=== PATIENT | male | born 1965 | race Caucasian/White ===

== ENCOUNTER 2017-12-08 12:36 | Outpatient (CLI) | payer OTHER ==
[~2017-12-08 12:36] MED LIST: ASA81 MG; GLUMETZA1000 MG; HYZAAR 100-251 UDTAB; HYZAAR 100/25 T1 TAB; LISINOPRIL2.5 MG; METOPROLOL SUC100 MG; TRICOR145 MG
== END 2017-12-08 12:44 | disposition home or self-care (01) ==
LOC: TOM 12:36
DX: G44.311 Acute post-traumatic headache, intractable (principal)

== ENCOUNTER 2017-12-10 11:40 | Outpatient (CLI) | payer OTHER | END 2017-12-10 17:00 | disposition home or self-care (01) | LOC: RAD 11:40 | DX: J01.10 Acute frontal sinusitis, unspecified (principal) ==

== ENCOUNTER → 2018-03-04 | Outpatient (CLI) | payer OTHER | END | disposition home or self-care (01) | LOC: PPH VACUNA 10:14 | DX: Z23 Encounter for immunization (principal) ==

== ENCOUNTER 2018-11-29 07:00 | Outpatient (CLI) | payer OTHER | END 2018-11-29 10:00 | disposition home or self-care (01) | LOC: TOM 07:00 | DX: J20.8 Acute bronchitis due to other specified organisms (principal); M75.32 Calcific tendinitis of left shoulder ==

== ENCOUNTER → 2018-11-29 | Outpatient (CLI) | payer OTHER | END | disposition home or self-care (01) | LOC: RAD 09:00 | DX: J20.8 Acute bronchitis due to other specified organisms (principal); M75.32 Calcific tendinitis of left shoulder ==

== ENCOUNTER → 2019-01-01 | Outpatient (CLI) | payer OTHER | END | disposition home or self-care (01) | LOC: TOM 09:46 | DX: I63.00 Cerebral infarction due to thrombosis of unspecified precerebral artery (principal) ==

== ENCOUNTER 2019-06-04 14:03 | Outpatient (CLI) | payer OTHER | END 2019-06-04 14:32 | disposition home or self-care (01) | LOC: SONOGRAMA 14:03 → MAMO-SONO 14:15 → SONOGRAMA 14:32 | DX: M25.511 Pain in right shoulder (principal); M25.512 Pain in left shoulder; M75.30 Calcific tendinitis of unspecified shoulder ==

== ENCOUNTER 2019-06-27 09:35 | Outpatient (CLI) | payer OTHER | END 2019-06-27 16:00 | disposition home or self-care (01) | LOC: LAB 09:35 | DX: I50.20 Unspecified systolic (congestive) heart failure (principal); D64.89 Other specified anemias ==

== ENCOUNTER → 2019-07-10 09:09 | Outpatient (CLI) | payer OTHER | END | disposition home or self-care (01) | LOC: LAB 09:09 | DX: E72.12 Methylenetetrahydrofolate reductase deficiency (principal); E11.65 Type 2 diabetes mellitus with hyperglycemia; I77.89 Other specified disorders of arteries and arterioles; I50.22 Chronic systolic (congestive) heart failure; D64.89 Other specified anemias; R10.84 Generalized abdominal pain; E03.8 Other specified hypothyroidism; E78.49 Other hyperlipidemia; N18.9 Chronic kidney disease, unspecified ==

== ENCOUNTER 2019-07-25 06:02 | Outpatient (CLI) | payer OTHER | END 2019-07-25 06:13 | disposition home or self-care (01) | LOC: LAB 06:02 | DX: H25.012 Cortical age-related cataract, left eye (principal); D68.8 Other specified coagulation defects; Z98.42 Cataract extraction status, left eye; E11.65 Type 2 diabetes mellitus with hyperglycemia; N39.0 Urinary tract infection, site not specified ==

== ENCOUNTER 2019-07-25 07:30 | Outpatient (CLI) | payer OTHER | END 2019-07-25 08:00 | disposition home or self-care (01) | LOC: NUCLEAR 07:30 | DX: I20.8 Other forms of angina pectoris (principal); I25.10 Atherosclerotic heart disease of native coronary artery without angina pectoris | CPT/HCPCS: A9500; 93017; 78452 ==

== ENCOUNTER 2019-09-26 13:49 | Outpatient (CLI) | payer OTHER | END 2019-09-26 14:30 | disposition home or self-care (01) | LOC: NUCLEAR 13:49 | DX: I87.2 Venous insufficiency (chronic) (peripheral) (principal) ==

== ENCOUNTER 2019-09-27 11:25 | Outpatient (CLI) | payer OTHER | END 2019-09-27 11:26 | disposition home or self-care (01) | LOC: RAD 11:25 | DX: R07.89 Other chest pain (principal); Z01.811 Encounter for preprocedural respiratory examination ==

== ENCOUNTER 2020-08-06 07:00 | Outpatient (CLI) | payer OTHER | END 2020-08-06 15:49 | disposition home or self-care (01) | LOC: PPH VACUNA 07:00 | DX: Z23 Encounter for immunization (principal) ==

== ENCOUNTER 2020-09-04 13:22 | Outpatient (CLI) | payer OTHER | END 2020-09-04 13:25 | disposition home or self-care (01) | LOC: LAB 13:22 | PROVIDERS: ATTEND Internal Medicine Hematology & Oncology | DX: Z20.828 Contact with and (suspected) exposure to other viral communicable diseases (principal) ==

== ENCOUNTER → 2020-09-09 08:18 | Outpatient (CLI) | payer OTHER | END | disposition home or self-care (01) | LOC: LAB 08:18 | PROVIDERS: ATTEND Internal Medicine Hematology & Oncology | DX: M79.642 Pain in left hand (principal); L03.012 Cellulitis of left finger; M25.542 Pain in joints of left hand; D64.89 Other specified anemias ==

== ENCOUNTER 2020-09-19 20:27 | Inpatient (IN) | payer OTHER ==
[~2020-09-19] VITALS: Ht 165.1 cm; Wt 86.2 kg
[2020-09-19] MEDS ORDERED: METFORMIN HCL1000 M2 (20:50)
[2020-09-19] MEDS ORDERED: JANUVIA50 MG (20:50)
[2020-09-19] MEDS ORDERED: LIPITOR40 MG (20:51)
[2020-09-19] MEDS ORDERED: B-100 COMPLEX100 MG (20:51)
[2020-09-19] MEDS ORDERED: CARVEDILOL6.25 MG (20:52)
--- NOTE | 2020-09-19 20:53 | NUR ---
PTE ALERTA Y ORIENTADO X 3 ESFERAS QUIEN LLEGA AMBULANDO OLIVIA REFIERE DEBILIDAD Y FIEBRE,REFIERE DOLOR EN DEDO INFECTADO HACE 3 SEMANAS.SE UBICA EN CAMA CON BARANDAS ELEVADAS,MIENTRAS SE LE DENISE HISTORIAL PTE PRESENTA "SLURRED SPEECH".SE NOTIFICA A DR ROSS QUIEN EVALUA PTE.
[2020-09-19] MEDS ORDERED: NUCYNTA50 MG (20:57)
[2020-09-19] MEDS ORDERED: GRALISE600 MG (20:57)
--- NOTE | 2020-09-19 21:10 | NUR ---
SE RECIBE PTE MASCULINO ALERTA Y ORIENTADO EN LAS GRADY ESFERAS EN COMPANIA DE FAMILIAR; ES EVALUADO POR . SE ORIENTA PTE SOBRE ORDENES DE TRATAMIENTO REFIERE COMPRENDER. SE COLECTAN MUESTRAS DE LABORATORIO Y SE CANALIZA VENA POR , BAJO MEDIDAS ASEPTICAS. SE REALIZA EKG Y SE PRESENTA A . SE NOTIFICA A PERSONAL DE TERAPIA RESPIRATORIA ABGS DE PTE. SE NOTIFICA A PERSONAL DE RADIOLAGIA PARA CHEST PORTABLE. SE ENTREGA ENVASE PARA COLECCION DE MUESTRA DE U/A Y U/C, SE ORIENTA PTE SOBRE RENNY DE LA MISMA REFIERE COMPRENDER.
== END 2020-10-01 19:10 | disposition home or self-care (01) | DRG 513 ==
LOC: ER 20:27 → SEC-K 22:18 → SURH 22:18 → MEDI 09-21 22:07 → SURH 09-23 10:58 → MEDJ 09-27 23:27 → SURH 10-01 19:10
PROVIDERS: Specialist; ADMIT Internal Medicine; ATTEND Internal Medicine
PROC: 4A033R1 Measurement of Arterial Saturation, Peripheral, Percutaneous Approach (ICD-10-PCS; 2020-09-19)
PROC: 4A12X4Z Monitoring of Cardiac Electrical Activity, External Approach (ICD-10-PCS; 2020-09-21)
PROC: 02HV33Z Insertion of Infusion Device into Superior Vena Cava, Percutaneous Approach (ICD-10-PCS; 2020-09-22)
PROC: 0PBV0ZZ Excision of Left Finger Phalanx, Open Approach (ICD-10-PCS; 2020-09-23)
PROC: 0JBK0ZZ Excision of Left Hand Subcutaneous Tissue and Fascia, Open Approach (ICD-10-PCS; principal; 2020-09-23 17:15)
DX: M86.042 Acute hematogenous osteomyelitis, left hand (principal); L02.512 Cutaneous abscess of left hand; L03.114 Cellulitis of left upper limb; L03.012 Cellulitis of left finger; I10 Essential (primary) hypertension; G51.0 Bell's palsy; E11.65 Type 2 diabetes mellitus with hyperglycemia; B95.7 Other staphylococcus as the cause of diseases classified elsewhere; Z20.828 Contact with and (suspected) exposure to other viral communicable diseases

== ENCOUNTER 2020-10-08 17:31 | Inpatient (IN) | payer OTHER ==
[~2020-10-08] VITALS: Ht 167.6 cm; Wt 86.2 kg
[~2020-10-08 17:31] MED LIST changes: +B-100 COMPLEX100 MG; +CARVEDILOL6.25 MG; +GRALISE600 MG; +JANUVIA50 MG; +LIPITOR40 MG; +METFORMIN HCL1000 M2; +NUCYNTA50 MG
[2020-10-08] MEDS ORDERED: XARELTO10 MG (17:49)
[2020-10-08] MEDS ORDERED: HUMALOG100 UNIT/2 (17:50)
[2020-10-08] MEDS ORDERED: LANTUS SOL100 UNIT/1 (17:50)
[2020-10-08] MEDS ORDERED: AMLODIPINE-OLM1 EAC2 (17:50)
[2020-10-08] MEDS ORDERED: JARDIANCE10 MG (17:50)
--- NOTE | 2020-10-08 17:51 | NUR ---
PACIENTE ALERTA Y ORIENTADO EN EDSON GRADY ESFERAS QUIEN LLEGA A ER PORM CELULITIS EN DEDO SHARYN DE MANO LT. PACIENTE REFIERE LEVE DOLOR. SE OBSERVA PICC LINE EN BRAZO RT.
== END 2020-10-21 10:06 | DRG 513 ==
LOC: ER 17:31 → SURH 18:02
PROVIDERS: Specialist; ADMIT Internal Medicine; ATTEND Internal Medicine
PROC: 0X6M0Z3 Detachment at Left Thumb, Low, Open Approach (ICD-10-PCS; principal; 2020-10-12 14:30)
PROC: BL3 Imaging, Connective Tissue, Magnetic Resonance Imaging (MRI) (ICD-10-PCS; 2020-10-20)
DX: T87.42 Infection of amputation stump, left upper extremity (principal); M86.042 Acute hematogenous osteomyelitis, left hand; L02.512 Cutaneous abscess of left hand; T87.52 Necrosis of amputation stump, left upper extremity; L03.012 Cellulitis of left finger; B96.1 Klebsiella pneumoniae [K. pneumoniae] as the cause of diseases classified elsewhere; E11.9 Type 2 diabetes mellitus without complications; Z79.4 Long term (current) use of insulin; I11.9 Hypertensive heart disease without heart failure; M24.522 Contracture, left elbow; M24.542 Contracture, left hand

== ENCOUNTER 2020-12-21 09:57 | Outpatient (CLI) | payer OTHER ==
[~2020-12-21 09:57] MED LIST changes: +AMLODIPINE-OLM1 EAC2; +HUMALOG100 UNIT/2; +JARDIANCE10 MG; +LANTUS SOL100 UNIT/1; +XARELTO10 MG
== END 2020-12-21 10:01 | disposition home or self-care (01) ==
LOC: LAB 09:57
PROVIDERS: ATTEND Internal Medicine Hematology & Oncology
DX: Z20.828 Contact with and (suspected) exposure to other viral communicable diseases (principal)

== ENCOUNTER 2021-12-05 15:21 | Outpatient (CLI) | payer OTHER | END 2021-12-05 15:27 | disposition home or self-care (01) | LOC: RAD 15:21 | PROVIDERS: ATTEND Internal Medicine Hematology & Oncology | DX: I10 Essential (primary) hypertension (principal); R09.1 Pleurisy; R07.81 Pleurodynia ==

== ENCOUNTER 2021-12-10 20:42 | Inpatient (IN) | payer OTHER ==
[~2021-12-10] VITALS: Ht 165.1 cm; Wt 86.2 kg
[2021-12-10] MEDS ORDERED: CARVEDILOL6.25 M1 PO (20:51)
[2021-12-10] MEDS ORDERED: AMLODIPINE BESY10 MG PO (20:51)
[2021-12-10] MEDS ORDERED: JANUVIA100 MG PO (20:51)
[2021-12-10] MEDS ORDERED: ST. JOSEPH ASPI81 M2 PO (20:52)
[2021-12-10] MEDS ORDERED: ATORVASTATIN CA40 MG PO (20:52)
[2021-12-10] MEDS ORDERED: METFORMIN HCL1000 M3 PO (20:52)
== END 2021-12-13 15:06 | disposition home or self-care (01) | DRG 552 ==
LOC: ER 20:42 → MEDI 12-11 12:54
PROVIDERS: ADMIT Internal Medicine; ATTEND Internal Medicine
PROC: BW21ZZZ Computerized Tomography (CT Scan) of Abdomen and Pelvis (ICD-10-PCS; 2021-12-11)
PROC: CF2YYZZ Tomographic (Tomo) Nuclear Medicine Imaging of Hepatobiliary System and Pancreas using Other Radionuclide (ICD-10-PCS; 2021-12-12)
PROC: BR37ZZZ Magnetic Resonance Imaging (MRI) of Thoracic Spine (ICD-10-PCS; principal; 2021-12-13)
PROC: BR39ZZZ Magnetic Resonance Imaging (MRI) of Lumbar Spine (ICD-10-PCS; 2021-12-13)
DX: M51.36 Other intervertebral disc degeneration, lumbar region (principal); R10.31 Right lower quadrant pain; E11.9 Type 2 diabetes mellitus without complications; Z79.4 Long term (current) use of insulin; I10 Essential (primary) hypertension; Z20.822 Contact with and (suspected) exposure to COVID-19
CPT/HCPCS: 72146; 72148

== ENCOUNTER 2023-04-26 23:45 | Inpatient (IN) | payer OTHER ==
[~2023-04-26] VITALS: Ht 165.1 cm; Wt 86.2 kg
[~2023-04-26 23:45] MED LIST changes: +AMLODIPINE BESY10 MG PO; +ATORVASTATIN CA40 MG PO; +CARVEDILOL6.25 M1 PO; +JANUVIA100 MG PO; +METFORMIN HCL1000 M3 PO; +ST. JOSEPH ASPI81 M2 PO
--- NOTE | 2023-04-27 00:56 | NUR ---
SE RECIEB PTE ALERTA Y ORIENTADO X3 CUAL REFIERE DOLOR ABDOMINAL CUADRANTE INFERIOR OPRESIVO, NAUSEAS Y VOMITOS X2. SE CATARINA S/V Y SE PRESENTA.
--- NOTE | 2023-04-27 07:29 | NUR ---
SE RECIBE PTE EN EL AREA DE OBSEVACION EN EL CUBICULO #14 PTE ALERTA Y ORIENTADO POR 3 SE OBSERVA VENOPUNCION PANTENTE Y SHAHEEN DE EDEMA, PTE SE MANTIENE EN OBSERVACION Y BAJO TRATAMIENTO. PTE EN ESEPRA DEL DR YUAN
== END 2023-04-29 18:04 | disposition home or self-care (01) | DRG 690 ==
LOC: ER 23:45 → SEC-K 04-27 10:02 → MEDI 04-27 10:02
PROVIDERS: ADMIT Specialist; ATTEND Specialist
PROC: BW21ZZZ Computerized Tomography (CT Scan) of Abdomen and Pelvis (ICD-10-PCS; principal; 2023-04-27)
DX: N39.0 Urinary tract infection, site not specified (principal); N10 Acute pyelonephritis; N20.0 Calculus of kidney; E11.9 Type 2 diabetes mellitus without complications; Z79.4 Long term (current) use of insulin; I10 Essential (primary) hypertension; G47.33 Obstructive sleep apnea (adult) (pediatric); N12 Tubulo-interstitial nephritis, not specified as acute or chronic; Z86.73 Personal history of transient ischemic attack (TIA), and cerebral infarction without residual deficits

== ENCOUNTER 2023-09-13 09:23 | Outpatient (CLI) | payer OTHER | END 2023-09-13 09:25 | disposition home or self-care (01) | LOC: LAB 09:23 → RAD 09:23 → LAB 09:25 | PROVIDERS: ATTEND Internal Medicine Hematology & Oncology | DX: J20.0 Acute bronchitis due to Mycoplasma pneumoniae (principal) ==

== ENCOUNTER 2023-09-13 12:28 | Outpatient (CLI) | payer OTHER | END 2023-09-13 12:37 | disposition home or self-care (01) | LOC: RAD 12:28 | PROVIDERS: ATTEND Internal Medicine Hematology & Oncology | DX: J20.0 Acute bronchitis due to Mycoplasma pneumoniae (principal) ==

== ENCOUNTER 2023-09-14 15:45 | Inpatient (IN) | payer OTHER ==
[~2023-09-14] VITALS: Ht 152.4 cm; Wt 86.2 kg
[2023-09-14 16:16] LABS: ABG PH 7.438 (7.35-7.45); ABG PO2 79.4 mmHg (80-100); ABG pCO2 35.6 mmHg (35-45); BASE EXCESS -0.1 mmol/l; BICARBONATE 23.5 mmol/l (23-25); SaO2 96.1 %; Tco2 24.6 mmol/l
[2023-09-14 16:19] LABS: allen test SATISFACTORY; o2 21 %; puncture site RADIAL LEFT
[2023-09-14 16:44] LABS: HEMATOCRIT 32.7 % (39.0-48.0); HEMOGLOBIN 11.1 g/dL (13-16.00); MEAN CELL VOLUME 82.3 fL (80.0-100.00); MEAN CORPUSCULAR HEMOGLOBIN 27.9 pg (27.00-32.0); MEAN CORPUSCULAR HGB CONC 33.9 g/dl (32.0-36.0); PLATELET COUNT 182 K/uL (150-450); RED BLOOD COUNT 3.97 M/uL (4.00-6.00); RED CELL DISTRIBUTION WIDTH 15.9 % (11.5-14.5)
[2023-09-14 17:08] LABS: BILIRUBIN TOTAL 0.63 mg/dL (0.3-1.2); CALCIUM 8.1 mg/dL (8.5-10.1); CREATININE SERUM 1.18 mg/dL (0.70-1.30); GFR 62.97; GLOBULINA 2.7 G/DL (2.4-3.5); POTASSIUM 4.39 mEq/L (3.5-5.1); TOTAL PROTEIN 5.7 gm/dL (6.4-8.2)
[2023-09-15 06:58] LABS: HEMATOCRIT 32.6 % (39.0-48.0); HEMOGLOBIN 11.4 g/dL (13-16.00); MEAN CELL VOLUME 81.5 fL (80.0-100.00); MEAN CORPUSCULAR HEMOGLOBIN 28.5 pg (27.00-32.0); MEAN CORPUSCULAR HGB CONC 34.9 g/dl (32.0-36.0); PLATELET COUNT 179 K/uL (150-450); RED BLOOD COUNT 4.01 M/uL (4.00-6.00); RED CELL DISTRIBUTION WIDTH 15.6 % (11.5-14.5)
[2023-09-15 07:32] LABS: INR 1.01; PARTIAL THROMBOPLASTIN TIME 31.5 SECONDS (22.0-34.0); PROTHROMBIN TIME 10.6 SECONDS (9.0-11.5)
[2023-09-15 08:08] LABS: ALBUMIN 2.8 gm/dL (3.4-5.0); BILIRUBIN TOTAL 0.55 mg/dL (0.3-1.2); BILIRUBIN,CONJUGATED 0.18 mg/dL (0.0-0.2); BILIRUBIN,UNCONJUGATED 0.37 mg/dL (0.0-0.6); CALCIUM 8.3 mg/dL (8.5-10.1); CHOL HDL RATIO 1.6 (0-5.0); GFR 76.22; GLOBULINA 2.8 G/DL (2.4-3.5); POTASSIUM 4.23 mEq/L (3.5-5.1); TOTAL PROTEIN 5.6 gm/dL (6.4-8.2)
[2023-09-15 08:11] LABS: C-REACTIVE PROTEIN 4.01 MG/DL (0.00-0.29)
[2023-09-15 08:12] LABS: PH,URINE 6.5 (5.0-8.0); URINE APPEARANCE Clear; URINE BILIRRUBIN Negative (NEGATIVE); URINE BLOOD Negative; URINE COLOR Yellow; URINE LEUKOCYTE Negative; URINE NITRATE Negative; URINE UROBILINOGEN 0.2 E.U./dl
[2023-09-15 08:16] LABS: URINE RBC 9.3 uL (0.0-20.8)
[2023-09-15 08:22] LABS: URINE BACTERIA 2.5 uL (0.0-1933); URINE EPITHELIAL CELLS 0.6 uL (0.0-38.8); URINE GLUCOSE 500 MG/DL (NEGATIVE); URINE PROTEIN 100 (NEGATIVE)
[2023-09-15 08:53] LABS: ERYTHROCYTE SEDIMENTATION RATE 74 mm/hr
[2023-09-18 07:34] LABS: HEMATOCRIT 37.3 % (39.0-48.0); HEMOGLOBIN 12.4 g/dL (13-16.00); MEAN CORPUSCULAR HEMOGLOBIN 27.5 pg (27.00-32.0); MEAN CORPUSCULAR HGB CONC 33.1 g/dl (32.0-36.0); PLATELET COUNT 217 K/uL (150-450); RED CELL DISTRIBUTION WIDTH 15.8 % (11.5-14.5)
[2023-09-18 07:39] LABS: ABG PH 7.442 (7.35-7.45); ABG PO2 117.4 mmHg (80-100); ABG pCO2 37.1 mmHg (35-45); SaO2 98.7 %
[2023-09-18 07:40] LABS: BICARBONATE 24.8 mmol/l (23-25); Tco2 25.9 mmol/l; allen test SATISFACTORY; o2 31 %; puncture site RADIAL RIGHT
[2023-09-18 07:50] LABS: ERYTHROCYTE SEDIMENTATION RATE 29 mm/hr
[2023-09-18 08:24] LABS: ALBUMIN 2.8 gm/dL (3.4-5.0); BILIRUBIN TOTAL 0.54 mg/dL (0.3-1.2); CREATININE SERUM 1.08 mg/dL (0.70-1.30); GFR 69.74; GLOBULINA 2.8 G/DL (2.4-3.5); POTASSIUM 4.07 mEq/L (3.5-5.1); TOTAL PROTEIN 5.6 gm/dL (6.4-8.2)
[2023-09-18 08:25] LABS: C-REACTIVE PROTEIN 0.41 MG/DL (0.00-0.29)
[2023-09-20 08:55] LABS: ALBUMIN 2.5 gm/dL (3.4-5.0); BILIRUBIN TOTAL 0.66 mg/dL (0.3-1.2); CALCIUM 7.7 mg/dL (8.5-10.1); CREATININE SERUM 0.92 mg/dL (0.70-1.30); GFR 83.92; GLOBULINA 2.2 G/DL (2.4-3.5); POTASSIUM 3.35 mEq/L (3.5-5.1); T4 TOTAL 5.98 UG/DL (4.5-12.1); TOTAL PROTEIN 4.7 gm/dL (6.4-8.2)
[2023-09-20 09:09] LABS: TSH 0.166 uIU/mL (0.358-3.74)
[2023-09-20 11:32] LABS: HEMATOCRIT 39.1 % (39.0-48.0); MEAN CELL VOLUME 82.2 fL (80.0-100.00); MEAN CORPUSCULAR HEMOGLOBIN 27.3 pg (27.00-32.0); MEAN CORPUSCULAR HGB CONC 33.2 g/dl (32.0-36.0); PLATELET COUNT 233 K/uL (150-450); RED BLOOD COUNT 4.76 M/uL (4.00-6.00); RED CELL DISTRIBUTION WIDTH 16.2 % (11.5-14.5)
[2023-09-22 08:11] LABS: CALCIUM 7.9 mg/dL (8.5-10.1); CREATININE SERUM 1.01 mg/dL (0.70-1.30); GFR 75.35; POTASSIUM 3.7 mEq/L (3.5-5.1)
[2023-09-22 08:50] LABS: HEMATOCRIT 36.8 % (39.0-48.0); HEMOGLOBIN 12.5 g/dL (13-16.00); MEAN CELL VOLUME 82.2 fL (80.0-100.00); MEAN CORPUSCULAR HGB CONC 34.1 g/dl (32.0-36.0); PLATELET COUNT 164 K/uL (150-450); RED BLOOD COUNT 4.48 M/uL (4.00-6.00); RED CELL DISTRIBUTION WIDTH 15.9 % (11.5-14.5)
[2023-09-24 07:48] LABS: HEMATOCRIT 36.6 % (39.0-48.0); HEMOGLOBIN 12.4 g/dL (13-16.00); MEAN CELL VOLUME 82.5 fL (80.0-100.00); PLATELET COUNT 140 K/uL (150-450); RED BLOOD COUNT 4.43 M/uL (4.00-6.00); RED CELL DISTRIBUTION WIDTH 15.9 % (11.5-14.5)
[2023-09-24 08:15] LABS: ALBUMIN 2.8 gm/dL (3.4-5.0); BILIRUBIN TOTAL 0.66 mg/dL (0.3-1.2); CALCIUM 8.4 mg/dL (8.5-10.1); CREATININE SERUM 1.07 mg/dL (0.70-1.30); GFR 70.49; GLOBULINA 2.3 G/DL (2.4-3.5); POTASSIUM 4.08 mEq/L (3.5-5.1); TOTAL PROTEIN 5.1 gm/dL (6.4-8.2)
[2023-09-24] MEDS ORDERED: HYDRALAZINE HCL25 MG PO (15:29)
[2023-09-24] MEDS ORDERED: COZAAR100 MG PO (15:29)
== END 2023-09-24 19:02 | disposition home or self-care (01) | DRG 194 ==
LOC: ER 15:45 → SURH 19:00 → MEDI 19:00 → MEDJ 19:00 → MEDI 19:19 → SURH 09-15 09:14
PROVIDERS: General Practice; Internal Medicine; Internal Medicine Endocrinology, Diabetes & Metabolism; Internal Medicine Infectious Disease; Specialist; Student in an Organized Health Care Education/Training Program; ADMIT Internal Medicine; ATTEND Internal Medicine
PROC: BW24ZZZ Computerized Tomography (CT Scan) of Chest and Abdomen (ICD-10-PCS; principal; 2023-09-14)
PROC: B24BZZZ Ultrasonography of Heart with Aorta (ICD-10-PCS; 2023-09-16)
PROC: 02HV33Z Insertion of Infusion Device into Superior Vena Cava, Percutaneous Approach (ICD-10-PCS; 2023-09-17)
PROC: BW24ZZZ Computerized Tomography (CT Scan) of Chest and Abdomen (ICD-10-PCS; 2023-09-20)
DX: J18.9 Pneumonia, unspecified organism (principal); E72.12 Methylenetetrahydrofolate reductase deficiency; I13.0 Hypertensive heart and chronic kidney disease with heart failure and stage 1 through stage 4 chronic kidney disease, or unspecified chronic kidney disease; N17.9 Acute kidney failure, unspecified; N39.0 Urinary tract infection, site not specified; E86.0 Dehydration; G47.33 Obstructive sleep apnea (adult) (pediatric); I25.10 Atherosclerotic heart disease of native coronary artery without angina pectoris; E11.22 Type 2 diabetes mellitus with diabetic chronic kidney disease; N18.9 Chronic kidney disease, unspecified; Z79.4 Long term (current) use of insulin; E11.65 Type 2 diabetes mellitus with hyperglycemia; I50.9 Heart failure, unspecified; Z20.822 Contact with and (suspected) exposure to COVID-19

== ENCOUNTER 2023-10-19 11:39 | Outpatient (CLI) | payer OTHER ==
[~2023-10-19 11:39] MED LIST changes: +COZAAR100 MG PO; +HYDRALAZINE HCL25 MG PO
== END 2023-10-19 11:45 | disposition home or self-care (01) ==
LOC: SONOGRAMA 11:39
PROVIDERS: ATTEND Specialist/Technologist, Other Nephrology
DX: J18.8 Other pneumonia, unspecified organism (principal); N18.30 Chronic kidney disease, stage 3 unspecified; I12.9 Hypertensive chronic kidney disease with stage 1 through stage 4 chronic kidney disease, or unspecified chronic kidney disease

== ENCOUNTER 2023-10-22 09:22 | Outpatient (CLI) | payer OTHER | END 2023-10-22 09:32 | disposition home or self-care (01) | LOC: LAB 09:22 | PROVIDERS: ATTEND Internal Medicine Hematology & Oncology | DX: E11.65 Type 2 diabetes mellitus with hyperglycemia (principal); N18.2 Chronic kidney disease, stage 2 (mild) ==

== ENCOUNTER 2023-10-22 12:00 | Outpatient (CLI) | payer OTHER | END 2023-11-01 11:05 | disposition home or self-care (01) | LOC: SONOGRAMA 12:00 | PROVIDERS: ATTEND Specialist/Technologist, Other Nephrology | DX: N18.30 Chronic kidney disease, stage 3 unspecified (principal); I12.9 Hypertensive chronic kidney disease with stage 1 through stage 4 chronic kidney disease, or unspecified chronic kidney disease ==

== ENCOUNTER 2024-01-25 08:44 | Outpatient (CLI) | payer OTHER | END 2024-01-25 09:03 | disposition home or self-care (01) | LOC: TOM 08:44 | PROVIDERS: ATTEND Internal Medicine Pulmonary Disease | DX: E04.1 Nontoxic single thyroid nodule (principal); J45.991 Cough variant asthma; R91.8 Other nonspecific abnormal finding of lung field; Z86.16 Personal history of COVID-19; J15.9 Unspecified bacterial pneumonia ==

== ENCOUNTER 2024-07-31 17:48 | Emergency (ER) | payer OTHER ==
[~2024-07-31] VITALS: Ht 167.6 cm; Wt 90.7 kg
[2024-07-31] MEDS ORDERED: ONDANSETRON HCL 2 MG/ML VIAL ONE (17:59)
[2024-07-31] MEDS ORDERED: ONDANSETRON HCL 2 MG/ML VIAL IV STA (18:04)
[2024-07-31 18:30] LABS: HEMATOCRIT 42.7 % (39.0-48.0); HEMOGLOBIN 14.7 g/dL (13-16.00); MEAN CELL VOLUME 88.8 fL (80.0-100.00); MEAN CORPUSCULAR HEMOGLOBIN 30.6 pg (27.00-32.0); MEAN CORPUSCULAR HGB CONC 34.4 g/dl (32.0-36.0); PLATELET COUNT 191 K/uL (150-450); RED BLOOD COUNT 4.81 M/uL (4.00-6.00)
[2024-07-31] MEDS ORDERED: 0.9 % SODIUM CHLORIDE 1,000 ML IV SCH (18:30)
[2024-07-31 18:37] LABS: INR < 0.93; PARTIAL THROMBOPLASTIN TIME 27.6 SECONDS (22.0-34.0)
[2024-07-31] MEDS ORDERED: ACETAMINOPHEN 500 MG GEL..CAP PO ONE (18:40)
[2024-07-31] MEDS ORDERED: ACETAMINOPHEN 500 MG GEL..CAP PO STA (18:49)
[2024-07-31 19:03] LABS: ALBUMIN 4.4 gm/dL (3.4-5.0); BILIRUBIN TOTAL 0.54 mg/dL (0.3-1.2); CALCIUM 10.1 mg/dL (8.5-10.1); CREATININE SERUM 1.22 mg/dL (0.70-1.30); GFR 60.39; GLOBULINA 3.6 G/DL (2.4-3.5); POTASSIUM 4.43 mEq/L (3.5-5.1)
== END 2024-07-31 20:20 | disposition designated cancer center or children's hospital (05) ==
LOC: ER 17:50
PROVIDERS: Emergency Medicine
DX: R42 Dizziness and giddiness (principal); Z86.73 Personal history of transient ischemic attack (TIA), and cerebral infarction without residual deficits; Z88.0 Allergy status to penicillin; G47.33 Obstructive sleep apnea (adult) (pediatric); J45.909 Unspecified asthma, uncomplicated; Z88.8 Allergy status to other drugs, medicaments and biological substances; E11.9 Type 2 diabetes mellitus without complications; Z79.84 Long term (current) use of oral hypoglycemic drugs; J32.0 Chronic maxillary sinusitis

== ENCOUNTER 2024-08-13 12:42 | Outpatient (CLI) | payer OTHER | END 2024-08-13 12:47 | disposition home or self-care (01) | LOC: RAD 12:42 | PROVIDERS: ATTEND General Practice | DX: M25.552 Pain in left hip (principal) ==

== ENCOUNTER 2024-12-11 16:00 | Outpatient (CLI) | payer OTHER | END 2024-12-11 16:10 | disposition home or self-care (01) | LOC: PPH VACUNA 16:00 | PROVIDERS: ATTEND Emergency Medicine Pediatric Emergency Medicine | DX: Z23 Encounter for immunization (principal) ==

== ENCOUNTER 2025-05-20 08:49 | Outpatient (CLI) | payer OTHER | END 2025-05-20 08:58 | disposition home or self-care (01) | LOC: SONOGRAMA 08:49 | PROVIDERS: ATTEND Internal Medicine Endocrinology, Diabetes & Metabolism | DX: E04.1 Nontoxic single thyroid nodule (principal) ==

== ENCOUNTER 2025-09-09 11:05 | Emergency (ER) | payer OTHER ==
[~2025-09-09] VITALS: Ht 165.1 cm; Wt 86.2 kg
[2025-09-09] MEDS ORDERED: SODIUM CHLORIDE 0.45 % 1,000 ML IV STA (11:22)
[2025-09-09 12:04] LABS: INR 0.99
[2025-09-09 12:08] LABS: ALT/SGPT 53.0 U/L (12-78); AST/SGOT 23.0 U/L (15-37); BILIRUBIN TOTAL 0.63 mg/dL (0.3-1.2); BUN CREA RATIO 14.0 (7.0-25.0); CREATININE SERUM 1.02 mg/dL (0.70-1.30); GFR 74.0; GLOBULINA 3.0 G/DL (2.4-3.5); OSMOLALITY SERUM 285.0 MOSM/KG (275-295)
[2025-09-09 12:09] LABS: GLUCOSE FASTING 262.0 mg/dL (65-100)
[2025-09-09 13:19] LABS: URINE APPEARANCE Clear; URINE BILIRRUBIN Negative (NEGATIVE); URINE BLOOD Negative; URINE COLOR Yellow; URINE KETONE Negative (NEGATIVE); URINE LEUKOCYTE Negative; URINE NITRATE Negative; URINE UROBILINOGEN 0.2 E.U./dl
[2025-09-09 13:22] LABS: URINE RBC 4.8 uL (0.0-20.8)
[2025-09-09 13:40] LABS: URINE BACTERIA 1.1 uL (0.0-1933); URINE CAST 0.14 uL (0.0-1.40); URINE EPITHELIAL CELLS 0.0 uL (0.0-38.8); URINE GLUCOSE 500 MG/DL (NEGATIVE); URINE PROTEIN 100 (NEGATIVE); URINE WBC 0.3 uL (0.0-23.2)
[2025-09-09 14:23] VITALS: BP 154/88; O2SAT 99
== END 2025-09-09 14:24 | disposition designated cancer center or children's hospital (05) ==
LOC: ER 11:05
PROVIDERS: General Practice; Internal Medicine
DX: R42 Dizziness and giddiness (principal); I10 Essential (primary) hypertension; E11.9 Type 2 diabetes mellitus without complications; Z79.84 Long term (current) use of oral hypoglycemic drugs; Z88.0 Allergy status to penicillin; Z88.1 Allergy status to other antibiotic agents; Z88.5 Allergy status to narcotic agent

== ENCOUNTER 2025-09-18 08:03 | Outpatient (CLI) | payer OTHER | END 2025-09-18 08:06 | disposition home or self-care (01) | LOC: NUCLEAR 08:03 | PROVIDERS: ATTEND Internal Medicine | DX: I10 Essential (primary) hypertension (principal); I25.10 Atherosclerotic heart disease of native coronary artery without angina pectoris ==

== ENCOUNTER 2025-10-05 21:15 | Emergency (ER) | payer OTHER ==
[~2025-10-05] VITALS: Ht 154.9 cm; Wt 86.2 kg
[2025-10-05] MEDS ORDERED: MAGNESIUM HYDROXIDE 400 MG/5 ML ML PO ONE (21:30)
[2025-10-05] MEDS ORDERED: MINERAL OIL 30 ML BLIST.PACK PO ONE (21:30)
[2025-10-05] MEDS ORDERED: LACTULOSE 20 G/30 ML BLIST.PACK PO ONE ×2 (21:30→23:15)
[2025-10-05] MEDS ORDERED: MINERAL OIL 30 ML BLIST.PACK ONE (21:39)
[2025-10-05] MEDS ORDERED: MAGNESIUM HYDROXIDE 30 ML BLIST.PACK PO ONE (21:39)
[2025-10-05] MEDS ORDERED: LACTULOSE 20 G/30 ML BLIST.PACK ONE (21:39)
[2025-10-05] MEDS ORDERED: NA PHOS,M-B/NA PHOS,DI-BA 1 BOTTLE ENEMA RECTAL ONE (22:00)
[2025-10-06] MEDS ORDERED: MIRALAX17 GM PO (00:08)
[2025-10-06] MEDS ORDERED: SURFAK240 M1 PO (00:08)
[2025-10-06] MEDS ORDERED: LACTULOSE 20 G/30 ML BLIST.PACK ONE (00:17)
== END 2025-10-06 01:10 | disposition home or self-care (01) ==
LOC: ER 21:16
DX: K59.00 Constipation, unspecified (principal); E11.9 Type 2 diabetes mellitus without complications; Z79.84 Long term (current) use of oral hypoglycemic drugs; Z88.0 Allergy status to penicillin; Z88.8 Allergy status to other drugs, medicaments and biological substances

== ENCOUNTER 2025-10-07 08:59 | Outpatient (CLI) | payer OTHER ==
[~2025-10-07 08:59] MED LIST changes: +MIRALAX17 GM PO; +SURFAK240 M1 PO
[2025-10-07 10:04] LABS: URINE APPEARANCE Clear; URINE BILIRRUBIN Negative (NEGATIVE); URINE BLOOD Negative; URINE COLOR Yellow; URINE GLUCOSE Negative (NEGATIVE); URINE KETONE Negative (NEGATIVE); URINE LEUKOCYTE Negative; URINE NITRATE Negative; URINE UROBILINOGEN 0.2 E.U./dl
[2025-10-07 10:09] LABS: URINE RBC 4.5 uL (0.0-20.8)
[2025-10-07 10:15] LABS: URINE BACTERIA 1.1 uL (0.0-1933); URINE CAST 0.00 uL (0.0-1.40); URINE EPITHELIAL CELLS 0.1 uL (0.0-38.8); URINE PROTEIN 100 (NEGATIVE); URINE WBC 0.1 uL (0.0-23.2)
[2025-10-07 10:33] LABS: INR 0.96
[2025-10-07 10:34] LABS: BUN CREA RATIO 15.0 (7.0-25.0); CREATININE SERUM 0.99 mg/dL (0.70-1.30); GFR 76.6; OSMOLALITY SERUM 276.0 MOSM/KG (275-295)
[2025-10-07 10:40] LABS: GLUCOSE FASTING 220.0 mg/dL (65-100)
[2025-10-07 10:44] LABS: BASO % 0.4 % (0.1-1.2); EOS # 0.55 (0.04-0.54); EOS % 8.1 % (0.7-7.0); LYMPH # 1.61 (1.18-3.74); LYMPH % 23.8 % (19.3-53.1); MEAN PLATELET VOLUME 11.10 fl (9.4-12.4); MONO # 0.50 (0.24-0.82); MONO % 7.4 % (4.7-12.5); NEUT # 4.07 (1.56-6.13); NEUT % 60.2 % (34.0-71.1); RED CELL DISTRIBUTION WIDTH 13.1 % (11.6-14.4)
[2025-10-07 14:10] LABS: RH POSITIVE
== END 2025-10-07 13:29 | disposition home or self-care (01) ==
LOC: LAB 08:59
PROVIDERS: ATTEND Internal Medicine
DX: D64.9 Anemia, unspecified (principal); N39.0 Urinary tract infection, site not specified; Z79.01 Long term (current) use of anticoagulants; J44.9 Chronic obstructive pulmonary disease, unspecified

== ENCOUNTER 2025-10-07 10:00 | Outpatient (CLI) | payer OTHER ==
[2025-10-09] MEDS ORDERED: ECOTRIN325 M1 PO (17:48)
[2025-10-09] MEDS ORDERED: LOSARTAN POTASS50 MG PO (17:48)
[2025-10-09] MEDS ORDERED: METFORMIN HCL500 M3 PO (17:48)
[2025-10-09] MEDS ORDERED: ELIQUIS5 MG PO (17:48)
== END 2025-10-14 14:46 | disposition home or self-care (01) ==
LOC: TOM 10:00
DX: R10.9 Unspecified abdominal pain (principal)

== ENCOUNTER 2025-10-09 17:41 | Inpatient (IN) | payer OTHER ==
[2025-10-09] MEDS ORDERED: METFORMIN HCL500 M3 PO (17:48)
[2025-10-09] MEDS ORDERED: ECOTRIN325 M1 PO (17:48)
[2025-10-09] MEDS ORDERED: ELIQUIS5 MG PO (17:48)
[2025-10-09] MEDS ORDERED: LOSARTAN POTASS50 MG PO (17:48)
[2025-10-09] MEDS ORDERED: SODIUM CHLORIDE 0.45 % 1,000 ML IV STA (18:08)
[2025-10-09 18:25] LABS: BASO % 0.8 % (0.1-1.2); EOS # 0.54 (0.04-0.54); EOS % 7.2 % (0.7-7.0); LYMPH # 1.85 (1.18-3.74); LYMPH % 24.6 % (19.3-53.1); MEAN PLATELET VOLUME 10.90 fl (9.4-12.4); MONO # 0.73 (0.24-0.82); MONO % 9.7 % (4.7-12.5); NEUT # 4.32 (1.56-6.13); NEUT % 57.4 % (34.0-71.1); RED CELL DISTRIBUTION WIDTH 12.8 % (11.6-14.4)
[2025-10-09] MEDS ORDERED: BARIUM SULFATE 450 ML ORAL.SUSP PO ONE (18:42)
[2025-10-09 18:46] LABS: INR 0.95
[2025-10-09 18:48] LABS: ALT/SGPT 48.0 U/L (12-78); AST/SGOT 24.0 U/L (15-37); BILIRUBIN TOTAL 0.61 mg/dL (0.3-1.2); BUN CREA RATIO 14.0 (7.0-25.0); CREATININE SERUM 1.07 mg/dL (0.70-1.30); GFR 70.03; GLOBULINA 2.7 G/DL (2.4-3.5); OSMOLALITY SERUM 276.0 MOSM/KG (275-295)
[2025-10-09 18:49] LABS: D DIMER 0.31 MG/L; GLUCOSE FASTING 264.0 mg/dL (65-100)
[2025-10-09 19:26] LABS: URINE APPEARANCE Clear; URINE BILIRRUBIN Negative (NEGATIVE); URINE BLOOD Negative; URINE COLOR Yellow; URINE KETONE Negative (NEGATIVE); URINE LEUKOCYTE Negative; URINE NITRATE Negative; URINE PROTEIN 30 (NEGATIVE); URINE UROBILINOGEN 0.2 E.U./dl
[2025-10-09 19:27] LABS: URINE RBC 4.0 uL (0.0-20.8)
[2025-10-09] MEDS ORDERED: ACETAMINOPHEN 500 MG GEL..CAP PO ONE ×2 (19:27→19:45)
[2025-10-09 19:44] LABS: URINE BACTERIA 1.1 uL (0.0-1933); URINE CAST 0.00 uL (0.0-1.40); URINE EPITHELIAL CELLS 0.0 uL (0.0-38.8); URINE GLUCOSE 100 MG/DL (NEGATIVE); URINE WBC 0 uL (0.0-23.2)
[2025-10-09] MEDS ORDERED: IPRATROPIUM BROMIDE 0.5 MG/2.5 ML AMPUL.NEB IH ONE ×2 (19:59→20:00)
[2025-10-09] MEDS ORDERED: LEVALBUTEROL HCL 0.63 MG/3 ML SOLUTION IH ONE ×3 (20:00)
[2025-10-09 21:33] LABS: COVID-19 AG NEGATIVE (NEGATIVE)
[2025-10-09] MEDS ORDERED: DEXTROSE 50 % IN WATER 0.5 G/ML DISP.SYRIN IV PRN (22:45)
[2025-10-09] MEDS ORDERED: INSULIN LISPRO 1,000 UNIT/10 ML UNITS SUBCUTANEO PRN (22:45)
[2025-10-09] MEDS ORDERED: 0.9 % SODIUM CHLORIDE 1,000 ML IV SCH (23:15)
[2025-10-09] MEDS ORDERED: levoFLOXacin IN DEXTROSE 5 % 150 ML IV SCH (23:32)
[2025-10-09] MEDS ORDERED: FAMOTIDINE/PF 20 MG in 0.9 % SODIUM CHLORIDE 8 ML IV PUSH SCH (23:32)
[2025-10-10] VITALS (9 sets, daily range): BP systolic 131–139; BP diastolic 66–73; O2SAT 93–100
[2025-10-10] MEDS ORDERED: IPRATROPIUM BROMIDE 0.5 MG/2.5 ML AMPUL.NEB IH SCH ×2 (01:00→02:00)
[2025-10-10] MEDS ORDERED: LEVALBUTEROL HCL 0.63 MG/3 ML SOLUTION IH SCH ×2 (01:00→02:00)
[2025-10-10] MEDS ORDERED: METHYLPREDNISOLONE SOD SUCC 125 MG VIAL IV STA (01:42)
[2025-10-10] MEDS ORDERED: METHYLPREDNISOLONE SOD SUCC 125 MG VIAL IV SCH ×2 (05:00→21:00)
[2025-10-10] MEDS ORDERED: AMLODIPINE BESYLATE 10 MG TABLET PO SCH (09:00)
[2025-10-10] MEDS ORDERED: ENOXAPARIN SODIUM 40 MG/0.4 ML SYRINGE SUBCUTANEO SCH (09:00)
[2025-10-10] MEDS ORDERED: LOSARTAN POTASSIUM 50 MG TABLET PO SCH (09:00)
[2025-10-10] MEDS ORDERED: CARVEDILOL 6.25 MG TABLET PO SCH (09:00)
[2025-10-10] MEDS ORDERED: METHYLPREDNISOLONE SOD SUCC 40 MG VIAL IV SCH (09:00)
[2025-10-10] MEDS ORDERED: ATORVASTATIN CALCIUM 40 MG TABLET PO SCH (09:00)
[2025-10-10 09:01] LABS: INR 0.98
[2025-10-10] MEDS ORDERED: DOCUSATE SODIUM 100MG CAP PO NR (17:00)
[2025-10-10] MEDS ORDERED: INSULIN LISPRO 1,000 UNIT/10 ML UNITS SUBCUTANEO SCH (17:38)
[2025-10-10] MEDS ORDERED: INSULIN GLARGINE,HUM.REC.ANLOG 1,000 UNITS/10 ML UNITS SUBCUTANEO SCH (17:38)
[2025-10-10] MEDS ORDERED: LACTULOSE 20 G/30 ML BLIST.PACK PO SCH (19:53)
[2025-10-10] MEDS ORDERED: TEMAZEPAM 15 MG CAPSULE PO SCH (21:00)
[2025-10-10] MEDS ORDERED: ACETAMINOPHEN 500 MG GEL..CAP PO PRN (22:30)
[2025-10-11] VITALS (7 sets, daily range): BP systolic 119–129; BP diastolic 68–76; O2SAT 90–100
[2025-10-11 08:19] LABS: BASO % 0.0 % (0.1-1.2); EOS # 0.00 (0.04-0.54); EOS % 0.0 % (0.7-7.0); LYMPH # 0.77 (1.18-3.74); LYMPH % 10.3 % (19.3-53.1); MEAN PLATELET VOLUME 12.40 fl (9.4-12.4); MONO # 0.22 (0.24-0.82); MONO % 2.9 % (4.7-12.5); NEUT # 6.46 (1.56-6.13); NEUT % 86.5 % (34.0-71.1); RED CELL DISTRIBUTION WIDTH 12.9 % (11.6-14.4)
[2025-10-11 08:23] LABS: LDH 262.0 U/L (87-241); PHOSPHOKINASE CREATININE 123.0 U/L (39-308)
[2025-10-11] MEDS ORDERED: DOCUSATE SODIUM 100MG CAP PO PRN (09:00)
[2025-10-11] MEDS ORDERED: LACTULOSE 10 G/15 ML ML PO PRN ×2 (09:45→10:00)
[2025-10-11] MEDS ORDERED: INSULIN LISPRO 1,000 UNIT/10 ML UNITS SUBCUTANEO SCH (11:00)
[2025-10-11] MEDS ORDERED: METHYLPREDNISOLONE SOD SUCC 40 MG VIAL IV SCH (13:00)
[2025-10-11] MEDS ORDERED: INSULIN REGULAR, HUMAN 1,000 UNIT/10 ML UNITS IV STA (14:11)
[2025-10-11] MEDS ORDERED: LIDOCAINE HCL 1% 10ML VIAL IJ ONE (14:50)
[2025-10-11] MEDS ORDERED: POVIDONE-IODINE 118 ML BOTT TOP ONE (14:50)
[2025-10-12] VITALS (9 sets, daily range): BP systolic 130–162; BP diastolic 74–79; O2SAT 84–99
[2025-10-12 06:18] LABS: BASO % 0.1 % (0.1-1.2); EOS # 0.00 (0.04-0.54); EOS % 0.0 % (0.7-7.0); LYMPH # 0.97 (1.18-3.74); LYMPH % 8.8 % (19.3-53.1); MEAN PLATELET VOLUME 11.30 fl (9.4-12.4); MONO # 0.34 (0.24-0.82); MONO % 3.1 % (4.7-12.5); NEUT # 9.65 (1.56-6.13); NEUT % 87.5 % (34.0-71.1); RED CELL DISTRIBUTION WIDTH 13.2 % (11.6-14.4)
[2025-10-12] MEDS ORDERED: INSULIN LISPRO 1,000 UNIT/10 ML UNITS SUBCUTANEO SCH (08:00)
[2025-10-12] MEDS ORDERED: INSULIN REGULAR, HUMAN 1,000 UNIT/10 ML UNITS IV STA (08:29)
[2025-10-12] MEDS ORDERED: INSULIN GLARGINE,HUM.REC.ANLOG 1,000 UNITS/10 ML UNITS SUBCUTANEO SCH ×2 (09:00)
[2025-10-12] MEDS ORDERED: METHYLPREDNISOLONE SOD SUCC 40 MG VIAL IV SCH (13:00)
[2025-10-12] MEDS ORDERED: PEG3350/SOD SULF,BICARB,CL/KCL 4,000 ML GALLON PO ONE (19:00)
[2025-10-12] MEDS ORDERED: fentaNYL CITRATE 50 MCG/ML AMPUL IV PUSH ONE (20:30)
[2025-10-12] MEDS ORDERED: DIPHENHYDRAMINE HCL 50 MG/ML VIAL 1ML IV ONE (20:30)
[2025-10-12] MEDS ORDERED: MIDAZOLAM HCL 2 MG/2 ML VIAL IV ONE (20:30)
[2025-10-13] VITALS (8 sets, daily range): BP systolic 128–148; BP diastolic 73–78; O2SAT 90–100
[2025-10-13] MEDS ORDERED: NA PHOS,M-B/NA PHOS,DI-BA 1 BOTTLE ENEMA RECTAL NR (06:00)
[2025-10-13] MEDS ORDERED: INSULIN LISPRO 1,000 UNIT/10 ML UNITS SUBCUTANEO SCH (08:00)
[2025-10-13] MEDS ORDERED: INSULIN GLARGINE,HUM.REC.ANLOG 1,000 UNITS/10 ML UNITS SUBCUTANEO SCH ×2 (09:00→21:00)
[2025-10-13 12:07] LABS: CA 125 12.2 U/mL (Not Estab.); CA 19-9 13.0 U/mL (0-35)
[2025-10-13] MEDS ORDERED: DIPHENHYDRAMINE HCL 50 MG/ML VIAL 1ML IV ONE (14:15)
[2025-10-13] MEDS ORDERED: MIDAZOLAM HCL 2 MG/2 ML VIAL IV ONE (14:15)
[2025-10-13] MEDS ORDERED: fentaNYL CITRATE 50 MCG/ML AMPUL IV PUSH ONE (14:15)
[2025-10-13] MEDS ORDERED: METHYLPREDNISOLONE SOD SUCC 40 MG VIAL IV SCH (21:00)
[2025-10-14 01:56] VITALS: O2SAT 96
[2025-10-14 02:47] VITALS: BP 138/75; O2SAT 94
[2025-10-14 05:25] VITALS: O2SAT 96
[2025-10-14 07:22] LABS: BASO % 0.0 % (0.1-1.2); EOS # 0.07 (0.04-0.54); EOS % 1.0 % (0.7-7.0); LYMPH # 2.59 (1.18-3.74); LYMPH % 38.7 % (19.3-53.1); MEAN PLATELET VOLUME 10.80 fl (9.4-12.4); MONO # 0.71 (0.24-0.82); MONO % 10.6 % (4.7-12.5); NEUT # 3.31 (1.56-6.13); NEUT % 49.4 % (34.0-71.1); RED CELL DISTRIBUTION WIDTH 13.2 % (11.6-14.4)
[2025-10-14 07:27] LABS: BUN CREA RATIO 17.0 (7.0-25.0); CREATININE SERUM 0.86 mg/dL (0.70-1.30); GFR 90.11; OSMOLALITY SERUM 288.0 MOSM/KG (275-295)
[2025-10-14 07:28] LABS: GLUCOSE FASTING 203.0 mg/dL (65-100)
[2025-10-14 09:01] VITALS: BP 145/74; O2SAT 96
[2025-10-14 09:19] VITALS: O2SAT 98
[2025-10-14 14:07] LABS: ANTI-CENTROMERE AB <0.2 AI (0.0-0.9); DNA AB DOUBLE STRABDED < 1 IU/mL (0-9)
[2025-10-14 22:06] LABS: anti MPO AB < 0.2 units (0.0-0.9); anti pr3 < 0.2 units (0.0-0.9)
== END 2025-10-14 13:14 | disposition home or self-care (01) | DRG 292 ==
LOC: ER 17:41 → MEDJ 23:17 → MEDI 10-12 13:12
PROVIDERS: General Practice; Student in an Organized Health Care Education/Training Program; ADMIT Internal Medicine; ATTEND Internal Medicine
PROC: BW21ZZZ Computerized Tomography (CT Scan) of Abdomen and Pelvis (ICD-10-PCS; principal; 2025-10-09)
PROC: BB24ZZZ Computerized Tomography (CT Scan) of Bilateral Lungs (ICD-10-PCS; 2025-10-09)
PROC: B246ZZZ Ultrasonography of Right and Left Heart (ICD-10-PCS; 2025-10-09)
PROC: 3E0F7GC Introduction of Other Therapeutic Substance into Respiratory Tract, Via Natural or Artificial Opening (ICD-10-PCS; 2025-10-10)
PROC: 4A12X4Z Monitoring of Cardiac Electrical Activity, External Approach (ICD-10-PCS; 2025-10-10)
PROC: 02HV33Z Insertion of Infusion Device into Superior Vena Cava, Percutaneous Approach (ICD-10-PCS; 2025-10-12)
PROC: 0DB78ZX Excision of Stomach, Pylorus, Via Natural or Artificial Opening Endoscopic, Diagnostic (ICD-10-PCS; 2025-10-12)
PROC: 0DJD8ZZ Inspection of Lower Intestinal Tract, Via Natural or Artificial Opening Endoscopic (ICD-10-PCS; 2025-10-13)
DX: I11.0 Hypertensive heart disease with heart failure (principal); J44.1 Chronic obstructive pulmonary disease with (acute) exacerbation; I50.9 Heart failure, unspecified; R91.8 Other nonspecific abnormal finding of lung field; K59.09 Other constipation; E78.49 Other hyperlipidemia; E11.9 Type 2 diabetes mellitus without complications; Z79.4 Long term (current) use of insulin; K64.8 Other hemorrhoids

== ENCOUNTER → 2025-10-23 | Outpatient (CLI) | payer OTHER ==
[~2025-10-23] MED LIST changes: +ECOTRIN325 M1 PO; +ELIQUIS5 MG PO; +LOSARTAN POTASS50 MG PO; +METFORMIN HCL500 M3 PO
== END | disposition home or self-care (01) ==
LOC: NUCLEAR 07:42
DX: C78.00 Secondary malignant neoplasm of unspecified lung (principal)